=== PATIENT | male | born 1975 | race Caucasian/White ===

== ENCOUNTER → 2024-09-25 | Outpatient (CLI) | payer BC, SELFPAY ==
--- NOTE | 2024-09-25 09:35 | XR_ITS ---
Examination: Shoulder,right, 3 views Technique: Shoulder AP internal rotation, AP external rotation, Y view shoulder, 3 views Exam date and time :September 25, 2024 0942 hours INDICATIONS: Right shoulder pain post injury 3 months ago. FINDINGS: No shoulder fracture or dislocation No calcific tendinitis Adequate bone density IMPRESSION: No fracture or dislocation Mild narrowing glenohumeral joint
== END | disposition home or self-care (01) ==
PROVIDERS: PCP Family Medicine; Referring Provider Family Medicine; Visit Provider Family Medicine
DX: M25.811 Other specified joint disorders, right shoulder (principal)
CPT/HCPCS: 73030

== ENCOUNTER → 2024-10-08 | Outpatient (CLI) | payer BC, SELFPAY ==
[2024-10-08 11:42] LABS: Cardiac Risk Estimate 4.2 RATIO (4.0-6.7); Cholesterol 237 mg/dL (132-200); HDL Cholesterol 56 mg/dL (40-60); LDL Cholesterol,Calculated 146 mg/dL (0-130); Triglycerides 177 mg/dL (30-150)
== END | disposition home or self-care (01) ==
LOC: COPL 10:28
PROVIDERS: PCP Family Medicine; Referring Provider Family Medicine; Visit Provider Family Medicine
DX: E78.2 Mixed hyperlipidemia (principal)
CPT/HCPCS: 36415; 80061

== ENCOUNTER 2025-01-24 23:29 | Emergency (ER) | payer BC, SELFPAY ==
[2025-01-24 23:31] VITALS: BMI 23.7
[2025-01-24 23:59] VITALS: BP 115/71; PULSE 77; RESP 18; TEMP 36.7; O2SAT 97
--- NOTE | 2025-01-25 00:01 | EDNOTE_ITS ---
ED Wound/Laceration-RME/HPI General Chief Complaint: Wound Recheck / Suture Removal Stated Complaint: RE CHECK WOUND LEFT FOOT Time Seen by Provider: 01/24/25 23:33 Arrival date/time: 01/24/25 23:29 50 year old male present to emergency room with c/o of wound check and new splint. patient was seen at [facility] on saturday and was diagnosed with toe fracture. pt report accidently stubbed his toe on . LOCATION: toe SEVERITY: Symptoms are described as being severe with limitations on activities of daily living QUALITY: Symptoms are described as being dull or achy CONTEXT: stubbed toe DURATION/TIMING: The symptoms started approximately 7 days ago and have been constant this then. ASSOCIATED SYMPTOMS: The patient is unable to identify any other associated symptoms. MODIFYING FACTORS: The patient is unable to identify any alleviating or aggravating symptoms. PERTINENT ROS: no fevers, no headache, no neck or chest pain, no unexplained nausea or vomiting, no focal neurological deficits REVIEW OF SYSTEMS: See History of Present Illness - with the exception of those mentioned in the history of present illness, all other systems reviewed and reported as negative GENERAL: In general the patient is awake, interactive, in an emergency department gurney. HEAD/EYES/EARS/NOSE/THROAT: normo-cephalic, atraumatic, mucus membranes are moist, anicteric, palpebral conjunctiva is pink, trachea is midline. EXTREMITY: left foot, + greater toe nail plate + honey crusty surround nail plate .no discoloration, n/v/s intact ( splint intact) no tenderness to palpation over the long bones or large joints of the bilateral upper extremities, no joint swelling, no joint erythema, no unilateral leg swelling and no peripheral edema. SKIN: warm, dry, well-perfused, no jaundice, no rash, no telangiectasias or petechia. PSYCH: calm, cooperative, no evidence of psychosis or agitation Related Data Previous Rx's ?Medication ?Instructions ?Recorded cephalexin 500 mg capsule 500 mg PO BID #14 caps 01/25 Allergies Allergy/AdvReac Type Severity Reaction Status Date / Time No Known Allergies Allergy Unknown Uncoded 03/19/09 17:14 Course Course Course Narrative: change splint exam consisted with nail plate separation, wound cleanse,first dose of keflex and rx of keflex 500mg bid for 7 days follow up with PCP as directed no sign of compartment syndrome or dvt Quality Measures none Orders Category Date Time Status Splint / Immobilizer STAT Care 01/25/25 00:00 Active cephALEXin [Keflex] Med 01/25/25 00:00 Discontinued 500 mg PO X1 ONE Vital Signs Vital signs: Vital Signs Temperature 98.1 F 01/24/25 23:59 Pulse Rate 77 01/24/25 23:59 Respiratory Rate 18 01/24/25 23:59 Blood Pressure 115/71 01/24/25 23:59 Pulse Oximetry (%) 97 01/24/25 23:59 Wound / Laceration Patient data External records reviewed:: [facility] previous records Clinical information provided by:: patient Social determinants that could affect healthcare access:: none Patient has the following chronic illnesses:: as stated in chart How is presenting disease/condition affected by chronic disease/condition?: exacerbated by Evaluation data The following diagnostics were reviewed and interpreted by me:: other (specify) (na ) Lab and/or radiology exams considered but not ordered:: na Interpretation Summary: na Medications / Prescriptions Medications or Prescriptions considered but not ordered:: na Medication administrations:: Medication Administration History Discontinued Medications Cephalexin HCl (Cephalexin 250 Mg Capsule) 500 mg PO X1 ONE Stop: 01/25/25 00:01 as stated above Consultations Consultation(s) initiated? (list below): No Diagnosis Wound Differential Diagnosis: abrasion and other (splint change, nail separation , toe fx ) Most likely diagnosis given after review of the tests above:: toe fx, nail separation, splint change Admission Indicated Admission indicated?: not indicated Admission Request Was there a request for admission?: No Disposition Plan Disposition Plan: Discharge Discharge Attestation Discharge Attestation: The patient and all family members were given an opportunity to ask questions and understood the discharge instructions. Discharge instructions specifically effects, indications for sooner follow up or return to the emergency department, and the expected course of current diagnosis. Patient condition: Stable Discharge Plan Plan Patient Disposition: HOME (Self Care) Prescriptions/Referrals Prescriptions/Med Rec: New cephalexin 500 mg capsule 500 mg PO BID Qty: 14 0RF Referrals: Sandie Arellano MD [Primary Care Provider] - In 1 week Problem List Clinical Impression: Nail plate separation, Aftercare for cast or splint check or change Patient/Caregiver Discharge Instructions Education Materials: ED Wound Care Print Language: Yoruba Stand Alone Forms: Selena Award Info., Patient Portal Info Letter
[2025-01-25] MEDS: cephALEXin 250 MG CAPSULE 500 MG PO (00:16)
== END 2025-01-25 00:20 | disposition home or self-care (01) ==
PROVIDERS: Emergency Provider Emergency Medicine; PCP Family Medicine
DX: Z48.00 Encounter for change or removal of nonsurgical wound dressing (principal)
CPT/HCPCS: 99282; A9270